=== PATIENT | female | born 1980 ===

== ENCOUNTER 2016-04-28 15:54 | Emergency (ER) | payer MEDICAID ==
[2016-04-28 15:54] VITALS: BMI 24.1
[2016-04-28 16:04] VITALS: BP 124/78; PULSE 103; RESP 16; TEMP 98.1; O2SAT 100
[2016-04-28] MEDS ORDERED: Apap-Butalbital-Caffeine 325-50-40mg Tab PO STA (16:29)
[2016-04-28] MEDS ORDERED: Apap-Butalbital-Caffeine 325-50-40mg Tab ONE (16:36)
[2016-04-28] MEDS ORDERED: Sodium Chloride 0.9% 1,000 ML IV STA (17:02)
[2016-04-28 17:28] LABS: BASO # 0.1 K/uL (0.0-0.2); BASO % 0.6 % (0.0-2.0); EOS # 0.1 K/uL (0.0-0.7); EOS % 0.9 % (0.0-4.0); HEMATOCRIT 38.6 % (34.0-47.0); LYMPH # 2.5 K/uL (1.0-4.3); LYMPH % 25.4 % (20.0-40.0); MEAN CELL VOLUME 86.5 fl (81.0-99.0); MEAN CORPUSCULAR HEMOGLOBIN 28.5 pg (27.0-31.0); MEAN PLATELET VOLUME 8.3 fl (7.2-11.7); MONO # 0.5 K/uL (0.0-0.8); MONO % 4.7 % (0.0-10.0); NEUT # 6.7 K/uL (1.8-7.0); NEUT % 68.4 % (50.0-75.0); RED CELL DISTRIBUTION WIDTH 13.7 % (11.5-14.5); WHITE BLOOD COUNT 9.9 K/uL (4.8-10.8)
[2016-04-28 17:36] LABS: ALB/GLOB RATIO 1.2 (1.0-2.1); ALKALINE PHOSPHATASE 65 U/L (38-126); ALT/SGPT 33 U/L (9-52); AST/SGOT 29 U/L (14-36); BILIRUBIN,TOTAL 0.5 mg/dl (0.2-1.3); BLOOD UREA NITROGEN 12 mg/dl (7-17); CALCIUM 9.3 mg/dL (8.4-10.2); CARBON DIOXIDE 26 mmol/L (22-30); CHLORIDE 102 mmol/L (98-107); GFR AFRICAN-AMERICAN > 60; GLUCOSE,RANDOM 98 mg/dL (65-105); POTASSIUM 3.6 MMOL/L (3.6-5.0); SODIUM 142 mmol/l (132-148); TOTAL PROTEIN 7.9 G/DL (6.3-8.2)
[2016-04-28 18:07] LABS: THYROID STIMULATING HORMONE 6.54 mIU/ML (0.46-4.68)
--- NOTE | 2016-04-28 18:09 | ED PDOC ---
HPI: Headache Time Seen by Provider: 04/28/16 16:13 Chief Complaint (Nursing): Headache Chief Complaint (Provider): Headache History Per: Patient History/Exam Limitations: no limitations Onset/Duration Of Symptoms: Days (3x) Current Symptoms Are (Timing): Still Present Severity: Moderate Associated Symptoms: Photophobia (possible), Other (slight dizziness). denies: Blurred Vision Additional Complaint(s): 35 year old female presents to the ED with complaints of a left sided (behind her eye) headache that radiates to her whole head then to the right side of her head that started 3x days ago. She reports having possible photophobia, slight dizziness, and she took motrin but had only slight relief from it. She was recently seen by her PMD for similar symptoms. She was given a perscription 50mcg synthroid and Rx for the sinus infection. She was also diagnosed with hyperthyroidism, which she had known but never took medication for it. She doesn 't have AMS, denies having change in vision, difficulty walking or talking, loss of memory, neck pain, fever, chills, chest pain, and any urinary complaints. PMD: Tam Banuelos MD Past Medical History Reviewed: Historical Data, Nursing Documentation, Vital Signs Vital Signs: Last Vital Signs Temp 98.1 F 04/28/16 16:00 Pulse 103 H 04/28/16 16:00 Resp 16 04/28/16 16:00 BP 124/78 04/28/16 16:00 Pulse Ox 100 04/28/16 16:00 - Medical History PMH: Asthma (mild), Back Problems, Hypothyroidism, Chronic Kidney Disease ( protein in urine) - Surgical History Surgical History: - Family History Family History: States: Unknown Family Hx - Social History Current smoker - smoking cessation education provided: No Alcohol: None Drugs: Denies - Home Medications Home Medications: Ambulatory Orders Medication Instructions Recorded Acetaminophen/Butalbital/Caf 1 tab PO TID #9 tab 04/28/16 [Fioricet] Metoclopramide [Reglan] 10 mg PO Q8 #9 tab 04/28/16 - Allergies Allergies/Adverse Reactions: Allergies Allergy/AdvReac Type Severity Reaction Status Date / Time oxycodone HCl [From Percocet] Allergy RASH Verified 04/28/16 16:00 Review of Systems ROS Statement: Except As Marked, All Systems Reviewed And Found Negative Constitutional: Negative for: Fever, Chills Eyes: Negative for: Vision Change Cardiovascular: Negative for: Chest Pain Genitourinary Female: Negative for: Dysuria, Frequency, Hematuria Musculoskeletal: Negative for: Neck Pain Neurological: Positive for: Headache (and possible photophobia), Dizziness. Negative for: Altered Mental Status, Other (motor or sensory deficits) Physical Exam - Reviewed Nursing Documentation Reviewed: Yes Vital Signs Reviewed: Yes - Physical Exam Appears: Positive for: Well, Non-toxic, In Acute Distress (mild painful distress ) Head Exam: Positive for: ATRAUMATIC, NORMOCEPHALIC Skin: Positive for: Normal Color, Warm, Dry Eye Exam: Positive for: Normal appearance, EOMI, PERRL. Negative for: Nystagmus , Periorbital swelling, Conjunctival injection ENT: Positive for: Normal ENT Inspection. Negative for: Pharyngeal Erythema, Tonsillar Swelling Neck: Positive for: Normal Cardiovascular/Chest: Positive for: Regular Rate, Rhythm Respiratory: Positive for: Normal Breath Sounds. Negative for: Respiratory Distress Pulses-Dorsalis Pedis (L): 2+ Pulses-Dorsalis Pedis (R): 2+ Pulses-Radial (L): 2+ Pulses-Radial (R): 2+ Gastrointestinal/Abdominal: Positive for: Normal Exam, Soft. Negative for: Tenderness Back: Positive for: Normal Inspection Extremity: Positive for: Normal ROM, Capillary Refill (normal ). Negative for: Tenderness Neurologic/Psych: Positive for: Alert, electric utility lineworker II-XII (intact ), Oriented (3x), Cerebellar Tests (intact normal ), Gait (normal ), Other (strength 5/5 upper and lower extremities ). Negative for: Motor/Sensory Deficits, Aphasia, Facial Droop - Laboratory Results Result Diagrams: 04/28/16 17:23 04/28/16 17:23 - ECG O2 Sat by Pulse Oximetry: 100 (RA) Pulse Ox Interpretation: Normal Medical Decision Making Medical Decision Makin:13 Initial impression: 35 year old female with left sided migraine ESR, evaluate for vasculitides Initial plan: * CMP * TSH * CBC * erythrocyte * sedimentation rate * fioricet 1 tab PO * sodium chloride 1,000ml IV 1,000mls/hr * reglan 10mg PO * reevaluation * pt had a normal head CT 04/16/16 Scribe Attestation: Documented by Tere Falcon, acting as a scribe for Brandyn CLIFFORD. Provider Scribe Attestation: All medical record entries made by the Scribe were at my direction and personally dictated by me. I have reviewed the chart and agree that the record accurately reflects my personal performance of the history, physical exam, medical decision making, and the department course for this patient. I have also personally directed, reviewed, and agree with the discharge instructions and disposition. labs reviewed with no acute finding. ESR wnl on re-evaluation: feeling better. no change in vision, no headache at this time. neuro exam with no focal weakness or deficits. discussed need for follow up and return information. all questions answered. stable for discharge. Disposition - Clinical Impression Clinical Impression: Migraine, Headache - Patient ED Disposition Is Patient to be Admitted: No Counseled Patient/Family Regarding: Studies Performed, Diagnosis, Need For Followup, Rx Given - Disposition Referrals: Norris Dudley MD [Medical Doctor] - Disposition: Routine/Home Disposition Time: 19:18 Condition: IMPROVED Additional Instructions: follow up with primary doctor and neurologist without fail return for severe headache, altered mental status or any new concerns. Prescriptions: Acetaminophen/Butalbital/Caf [Fioricet] 1 tab PO TID #9 tab Metoclopramide [Reglan] 10 mg PO Q8 #9 tab Instructions: Migraine Headache (ED), General Headache (ED)
== END 2016-04-28 19:39 | disposition home or self-care (01) ==
LOC: H.ER 15:54
DX: G43.909 Migraine, unspecified, not intractable, without status migrainosus (principal); E03.9 Hypothyroidism, unspecified; N18.9 Chronic kidney disease, unspecified

== ENCOUNTER 2016-10-14 12:32 | Emergency (ER) | payer MEDICAID ==
[2016-10-14 12:32] VITALS: BMI 24.1
[2016-10-14 12:38] VITALS: TEMP 98.1
--- NOTE | 2016-10-14 12:54 | ED PDOC ---
HPI: Abdomen Time Seen by Provider: 10/14/16 12:41 Chief Complaint (Nursing): Abdominal Pain History Per: Patient Onset/Duration Of Symptoms: Days (2) Current Symptoms Are (Timing): Still Present Severity: Mild Pain Scale Rating Of: 2 Location Of Pain/Discomfort: Other (Right flank) Quality Of Discomfort: Unable To Describe Associated Symptoms: Urinary Symptoms. denies: Fever, Nausea, Vomiting, Diarrhea Exacerbating Factors: None Alleviating Factors: None Additional Complaint(s): Right flank pain radiating to RLQ since yesterday assoc with dysuria. Denies fever or chills. Abnormal Vaginal Bleeding: No Past Medical History Vital Signs: Last Vital Signs Temp 98.1 F 10/14/16 12:36 Pulse 86 10/14/16 12:36 Resp 16 10/14/16 12:36 BP 119/71 10/14/16 12:36 Pulse Ox 98 10/14/16 12:54 - Medical History PMH: Asthma (mild), Back Problems, Hypothyroidism, Chronic Kidney Disease ( protein in urine) - Surgical History Surgical History: - Family History Family History: States: Unknown Family Hx - Home Medications Home Medications: Ambulatory Orders Medication Instructions Recorded Acetaminophen/Butalbital/Caf 1 tab PO TID #9 tab 04/28/16 [Fioricet] Metoclopramide [Reglan] 10 mg PO Q8 #9 tab 04/28/16 Naproxen [Naprosyn] 500 mg PO Q12H #20 tab 10/14/16 Sulfamethoxazole/Trimethoprim 1 tab PO BID #20 tab 10/14/16 [Bactrim DS 800 mg-160 mg] - Allergies Allergies/Adverse Reactions: Allergies Allergy/AdvReac Type Severity Reaction Status Date / Time oxycodone HCl [From Percocet] Allergy RASH Verified 04/28/16 16:00 Review of Systems Constitutional: Negative for: Fever Gastrointestinal: Negative for: Nausea, Vomiting, Abdominal Pain Genitourinary Female: Positive for: Dysuria Musculoskeletal: Positive for: Back Pain Physical Exam - Physical Exam Appears: Positive for: Non-toxic, No Acute Distress Skin: Positive for: Normal Color, Warm, DRY Gastrointestinal/Abdominal: Positive for: Bowel Sounds, Soft. Negative for: Tenderness Back: Positive for: Normal Inspection, R CVA Tenderness Neurologic/Psych: Positive for: Alert, Oriented - Laboratory Results Result Diagrams: 10/14/16 13:00 10/14/16 13:00 - ECG O2 Sat by Pulse Oximetry: 98 Disposition - Clinical Impression Clinical Impression: Cystitis - Patient ED Disposition Is Patient to be Admitted: No Counseled Patient/Family Regarding: Studies Performed, Diagnosis, Need For Followup, Rx Given - Disposition Referrals: [facility] [Outside] Disposition: Routine/Home Disposition Time: 14:44 Condition: FAIR Prescriptions: Naproxen [Naprosyn] 500 mg PO Q12H #20 tab Sulfamethoxazole/Trimethoprim [Bactrim DS 800 mg-160 mg] 1 tab PO BID #20 tab Instructions: Urinary Tract Infection in Women (ED) Forms: [employer] (Moldovan)
[2016-10-14 13:17] LABS: BASO % 0.7 % (0.0-2.0); EOS # 0.1 K/uL (0.0-0.7); HEMATOCRIT 38.9 % (34.0-47.0); LYMPH # 1.6 K/uL (1.0-4.3); LYMPH % 34.6 % (20.0-40.0); MEAN CELL VOLUME 85.6 fl (81.0-99.0); MEAN CORPUSCULAR HEMOGLOBIN 28.1 pg (27.0-31.0); MEAN CORPUSCULAR HGB CONC 32.8 g/dL (33.0-37.0); MEAN PLATELET VOLUME 8.3 fl (7.2-11.7); MONO # 0.3 K/uL (0.0-0.8); MONO % 6.2 % (0.0-10.0); NEUT # 2.7 K/uL (1.8-7.0); NEUT % 56.5 % (50.0-75.0); NRBC % 0.1 % (0.0-0.0); RED CELL DISTRIBUTION WIDTH 13.7 % (11.5-14.5); WHITE BLOOD COUNT 4.8 K/uL (4.8-10.8)
[2016-10-14 13:32] LABS: ALB/GLOB RATIO 1.2 (1.0-2.1); ALKALINE PHOSPHATASE 56 U/L (38-126); ALT/SGPT 31 U/L (9-52); AST/SGOT 30 U/L (14-36); BILIRUBIN,TOTAL 0.5 mg/dl (0.2-1.3); BLOOD UREA NITROGEN 10 mg/dl (7-17); CALCIUM 9.2 mg/dL (8.4-10.2); CARBON DIOXIDE 22 mmol/L (22-30); CHLORIDE 107 mmol/L (98-107); GFR AFRICAN-AMERICAN > 60; GLUCOSE,RANDOM 88 mg/dL (65-105); POTASSIUM 3.9 MMOL/L (3.6-5.0); SODIUM 139 mmol/l (132-148); TOTAL PROTEIN 7.4 G/DL (6.3-8.2)
--- NOTE | 2016-10-14 14:26 | CT ---
PROCEDURE: CT abdomen pelvis dated 10/14/2016 HISTORY: Rule out kidney stone. Right-sided abdominal pain. COMPARISON: Comparison made with CT scan abdomen pelvis 01/11/2016 TECHNIQUE: Contiguous axial images of the abdomen and pelvis performed without oral or intravenous contrast material. Coronal and Sagittal reformats generated. Radiation dose: Total exam DLP = 364.75 mGy-cm. This CT exam was performed using one or more of the following dose reduction techniques: Automated exposure control, adjustment of the mA and/or kV according to patient size, and/or use of iterative reconstruction technique. FINDINGS: LOWER THORAX: Lung bases are free of focal consolidation effusion or pneumothorax. There may be some minimal scarring left lung base. Heart size normal. No significant pericardial effusion. There appears to be tiny hiatal hernia. LIVER: Liver exhibits normal size measuring approximately 17.2 cm in CC dimension. Previously noted small -sub cm low-attenuation focus inferior posterior aspect right lobe liver on which was too small to characterize on prior study not appreciated on this exam due to the lack of circulating intravenous contrast material. GALLBLADDER AND BILE DUCTS: Gallbladder is physiologically distended. No evidence of intraluminal gallbladder calculi. PANCREAS: Pancreas appears grossly unremarkable. SPLEEN: Spleen exhibits normal size and attenuation pattern without mass collection calcification. ADRENALS: There are no adrenal lesions. KIDNEYS AND URETERS: Kidneys demonstrate relatively symmetric size. No evidence of nephrolithiasis or hydronephrosis. No obvious renal mass or collection seen on this noncontrast study. BLADDER: The urinary bladder is incompletely distended which may in part account for slight thick-walled appearance. Possibility of a cystitis not excluded. REPRODUCTIVE: Uterus and adnexal structures grossly unremarkable. APPENDIX: What is felt to represent a normal partially DI air-filled appendix best seen on axial image number [id number] and coronal image number [id number]. BOWEL: Evaluation of the bowel is limited due to the lack of oral contrast material. Stomach is incompletely distended which presumably accounts for slight thick-walled appearance. Visualized loops of small bowel exhibit normal contour and caliber. No evidence of acute mechanical small bowel obstruction. There is a large amount of stool within the cecum and at ascending at colon and to a lesser degree transverse colon consistent with fecal retention/ constipation. No obvious mural wall thickening. PERITONEUM: No gross free intraperitoneal air. No free or loculated fluid collections. LYMPH NODES: Unremarkable. No enlarged lymph nodes. VASCULATURE: Unremarkable. No aortic aneurysm. BONES: Moderate levoscoliosis centered at the lower L2 level. Mild multilevel degenerative spondylosis of the lumbar and to a lesser degree lower thoracic spine OTHER FINDINGS: None. IMPRESSION: No evidence of nephrolithiasis or hydronephrosis. No evidence of acute appendicitis. Findings consistent with moderate constipation predominant involving the cecum and at ascending colon and to a lesser degree transverse colon. Previously noted tiny low-attenuation focus within the posterior inferior aspect right lobe liver is not appreciated on this study due to the lack of circulating intravenous contrast material. Mild wall thickening of the urinary bladder likely in part due to incomplete distention however cystitis not excluded.
[2016-10-14 15:14] VITALS: BP 132/76; PULSE 78; RESP 19; O2SAT 99
== END 2016-10-14 15:14 | disposition home or self-care (01) ==
LOC: H.ER 12:32
DX: N30.90 Cystitis, unspecified without hematuria (principal)
CPT/HCPCS: 74176; 80053; 81025; 85025; 96374; 96375; 99283; J1885; J2405

== ENCOUNTER 2017-02-16 16:24 | Emergency (ER) | payer SELFPAY ==
[2017-02-16 16:24] VITALS: BMI 24.1
[2017-02-16 16:35] VITALS: BP 130/80; PULSE 98; RESP 16; TEMP 98.7; O2SAT 98
[2017-02-16 18:35] LABS: BASO # 0.1 K/uL (0.0-0.2); BASO % 0.7 % (0.0-2.0); EOS # 0.1 K/uL (0.0-0.7); EOS % 0.9 % (0.0-4.0); HEMOGLOBIN 13.1 g/dL (12.0-16.0); LYMPH # 2.1 K/uL (1.0-4.3); LYMPH % 22.2 % (20.0-40.0); MEAN CELL VOLUME 87.2 fl (81.0-99.0); MEAN CORPUSCULAR HEMOGLOBIN 29.3 pg (27.0-31.0); MEAN CORPUSCULAR HGB CONC 33.6 g/dL (33.0-37.0); MONO # 0.5 K/uL (0.0-0.8); NEUT # 6.6 K/uL (1.8-7.0); NEUT % 71.2 % (50.0-75.0); RBC 4.47 Mil/uL (3.80-5.20); RED CELL DISTRIBUTION WIDTH 13.7 % (11.5-14.5); WHITE BLOOD COUNT 9.2 K/uL (4.8-10.8)
[2017-02-16 18:43] LABS: ALB/GLOB RATIO 1.2 (1.0-2.1); ALBUMIN 4.2 g/dL (3.5-5.0); ALT/SGPT 39 U/L (9-52); AST/SGOT 29 U/L (14-36); BLOOD UREA NITROGEN 9 mg/dl (7-17); CALCIUM 9.3 mg/dL (8.4-10.2); GFR AFRICAN-AMERICAN > 60; GFR NON-AFRICAN AMERICAN > 60
[2017-02-16 19:10] LABS: SQUAMOUS EPITHIAL 1 /hpf (0-5); URINE BILIRUBIN NEGATIVE (NEGATIVE); URINE BLOOD MODERATE (NEGATIVE); URINE CLARITY SLIGHTY-CLOUDY (Clear); URINE COLOR YELLOW (YELLOW); URINE GLUCOSE (UA) NEG (Normal); URINE LEUKOCYTE ESTERASE NEG Leu/uL (Negative); URINE NITRATE NEGATIVE (NEGATIVE); URINE PROTEIN NEGATIVE (NEGATIVE); URINE UROBILINOGEN 0.2-1.0 mg/dL (0.2-1.0)
--- NOTE | 2017-02-16 19:44 | ED PDOC ---
HPI: Headache Time Seen by Provider: 02/16/17 16:38 Chief Complaint (Nursing): Headache Chief Complaint (Provider): Left sided headache, dizziness History Per: Patient History/Exam Limitations: no limitations Onset/Duration Of Symptoms: Days Current Symptoms Are (Timing): Still Present Severity: Mild Pain Scale Rating Of: 4 Quality: Sharp Additional Complaint(s): Pt reports headache in the left temporal region. Pt states she was seen here about 1 year ago for the same. She states he occurred for a few months. She was seen by urologist at that time and she was told it could be TMJ. Pt reports the same for a few weeks at the end of summer. PT states she was told to get an MRI. Pt states that it began a few days ago. Pt states today she felt dizziness , which she states has improved and wanted to be evaluated. Past Medical History Reviewed: Historical Data, Nursing Documentation, Vital Signs Vital Signs: Last Vital Signs Temp 98.7 F 02/16/17 16:32 Pulse 98 H 02/16/17 16:32 Resp 16 02/16/17 16:32 BP 130/80 02/16/17 16:32 Pulse Ox 98 02/16/17 16:32 - Medical History PMH: Asthma (mild), Back Problems, Hypothyroidism, Chronic Kidney Disease ( protein in urine) - Surgical History Surgical History: - Family History Family History: States: Unknown Family Hx - Home Medications Home Medications: Ambulatory Orders Medication Instructions Recorded Acetaminophen/Butalbital/Caf 1 tab PO TID #9 tab 04/28/16 [Fioricet] Metoclopramide [Reglan] 10 mg PO Q8 #9 tab 04/28/16 Naproxen [Naprosyn] 500 mg PO Q12H #20 tab 10/14/16 Sulfamethoxazole/Trimethoprim 1 tab PO BID #20 tab 10/14/16 [Bactrim DS 800 mg-160 mg] - Allergies Allergies/Adverse Reactions: Allergies Allergy/AdvReac Type Severity Reaction Status Date / Time oxycodone HCl [From Percocet] Allergy RASH Verified 02/16/17 16:32 Review of Systems ROS Statement: Except As Marked, All Systems Reviewed And Found Negative Constitutional: Negative for: Fever, Chills Gastrointestinal: Negative for: Nausea, Vomiting, Abdominal Pain Physical Exam - Reviewed Nursing Documentation Reviewed: Yes Vital Signs Reviewed: Yes - Physical Exam Appears: Positive for: Well, Non-toxic, No Acute Distress Head Exam: Positive for: ATRAUMATIC, NORMAL INSPECTION, NORMOCEPHALIC Skin: Positive for: Normal Color, Warm, DRY Eye Exam: Positive for: Normal appearance ENT: Positive for: Normal ENT Inspection Neck: Positive for: Normal, Painless ROM Cardiovascular/Chest: Positive for: Regular Rate, Rhythm Respiratory: Positive for: CNT, Normal Breath Sounds Gastrointestinal/Abdominal: Positive for: Normal Exam, Bowel Sounds, Soft Back: Positive for: Normal Inspection Extremity: Positive for: Normal ROM Neurologic/Psych: Positive for: Alert, Oriented, Gait. Negative for: Motor/ Sensory Deficits, Facial Droop - Laboratory Results Result Diagrams: 02/16/17 18:25 02/16/17 18:25 - ECG O2 Sat by Pulse Oximetry: 98 Medical Decision Making Medical Decision Making: Slight elevation of TSH. Discussed with patient. Pt did not want CT at this time. Disposition - Clinical Impression Clinical Impression: Headache - Patient ED Disposition Is Patient to be Admitted: No Counseled Patient/Family Regarding: Diagnosis, Need For Followup - Disposition Disposition: Routine/Home Disposition Time: 19:46 Condition: GOOD Instructions: Acute Headache (ED) Forms: [employer] (Danish)
== END 2017-02-16 20:16 | disposition home or self-care (01) ==
LOC: H.ER 16:24
DX: R51 Headache (principal); E03.9 Hypothyroidism, unspecified; J45.909 Unspecified asthma, uncomplicated; Z88.5 Allergy status to narcotic agent

== ENCOUNTER 2017-04-03 14:35 | Emergency (ER) | payer SELFPAY ==
[2017-04-03 14:35] VITALS: BMI 24.1
[2017-04-03 14:41] VITALS: BP 129/91; PULSE 91; RESP 16; TEMP 98; O2SAT 100
[2017-04-03] MEDS ORDERED: Sodium Chloride 0.9% 1,000 ML IV STA (15:28)
--- NOTE | 2017-04-03 15:33 | ED PDOC ---
HPI: Abdomen Time Seen by Provider: 04/03/17 15:29 Chief Complaint (Nursing): Groin Pain Chief Complaint (Provider): RIGHT History Per: Patient (36 Y/O FEMALE HERE FOR EVALUATION OF RIGHT SIDED BACK PAIN THAT OCCURRED WHEN SHE SAT UP OUT OF BED. NOTES PAIN ALONG RIGHT LOWER ABD NOW. DENIES ANY FEVERS/CHILLS. PATIENT DOES NOT WANT CT ABD/PELVIS SHE HAS HAD MANY RECENTLY. LAST CT REVIEWED 10/2016 NO RENAL STONE NOTED.) Past Medical History Reviewed: Historical Data, Nursing Documentation, Vital Signs Vital Signs: Last Vital Signs Temp 98.0 F 04/03/17 14:38 Pulse 91 H 04/03/17 14:38 Resp 16 04/03/17 14:38 BP 129/91 H 04/03/17 14:38 Pulse Ox 100 04/03/17 19:34 - Medical History PMH: Asthma (mild), Back Problems, Hypothyroidism, Chronic Kidney Disease ( protein in urine) - Surgical History Surgical History: - Family History Family History: States: Unknown Family Hx - Home Medications Home Medications: Ambulatory Orders Medication Instructions Recorded Acetaminophen/Butalbital/Caf 1 tab PO TID #9 tab 04/28/16 [Fioricet] Metoclopramide [Reglan] 10 mg PO Q8 #9 tab 04/28/16 Naproxen [Naprosyn] 500 mg PO Q12H #20 tab 10/14/16 Sulfamethoxazole/Trimethoprim 1 tab PO BID #20 tab 10/14/16 [Bactrim DS 800 mg-160 mg] Docusate Sodium [Colace] 100 mg PO BID #14 capsule 04/03/17 Docusate Sodium [Colace] 100 mg PO BID PRN #14 capsule 04/03/17 Naproxen 375 mg PO Q8 PRN #21 tablet 04/03/17 Naproxen 375 mg PO Q8 PRN #21 tablet 04/03/17 - Allergies Allergies/Adverse Reactions: Allergies Allergy/AdvReac Type Severity Reaction Status Date / Time oxycodone HCl [From Percocet] Allergy RASH Verified 04/03/17 14:38 Review of Systems ROS Statement: Except As Marked, All Systems Reviewed And Found Negative Gastrointestinal: Positive for: Abdominal Pain Physical Exam - Reviewed Nursing Documentation Reviewed: Yes Vital Signs Reviewed: Yes - Physical Exam Appears: Positive for: Well, Non-toxic, No Acute Distress Head Exam: Positive for: ATRAUMATIC, NORMAL INSPECTION, NORMOCEPHALIC Skin: Positive for: Normal Color, Warm, DRY Eye Exam: Positive for: EOMI, Normal appearance, PERRL ENT: Positive for: Normal ENT Inspection Neck: Positive for: Normal, Painless ROM Cardiovascular/Chest: Positive for: Regular Rate, Rhythm Respiratory: Positive for: CNT, Normal Breath Sounds Gastrointestinal/Abdominal: Positive for: Normal Exam, Bowel Sounds, Soft, Tenderness (NONTENDER ABDOMEN/ TENDERNESS DESCRIBED RIGHT INGUINAL REGION.) Back: Positive for: Normal Inspection. Negative for: L CVA Tenderness, R CVA Tenderness Extremity: Positive for: Normal ROM Neurologic/Psych: Positive for: Alert, Oriented - Laboratory Results Result Diagrams: 04/03/17 15:50 04/03/17 15:50 - ECG O2 Sat by Pulse Oximetry: 100 - Progress ED Course And Treament: TORADOL 15 MG IV X 1 DOSE NS 1 LITER TRANSVAGINAL US: IMPRESSION: No ovarian cyst or adnexal mass. Small amount of free fluid in the endocervical canal is of uncertain etiology and significance. 2.1 x 1.5 x 2.5 cm midbody anterior wall intramural fibroid. ABDOMINAL US: IMPRESSION: No definite visualization of the appendix. Acute appendicitis can neither be confirmed nor excluded. Nonspecific free fluid in the right lower quadrant. RENAL US: IMPRESSION: Unremarkable renal sonogram. Nonspecific 0.8 cm echogenic structure within the right hepatic lobe, possibly a hemangioma. CT ABDOMEN/PELVIS WITHOU CONTRAST (PATIENT REFUSED CONTRAST) IMPRESSION: 1. No CT evidence for acute appendicitis. 2. Mild hepatomegaly. 3. Constipation. No evidence of bowel obstruction. PATIENT DEFERRED PELVIC EXAM. STATES SHE HAS HAD STD TESTING WITH TANK T[employer]ER AND WILL F /U. GC SENT WITH URINE TODAY Disposition - Clinical Impression Clinical Impression: Constipation, Abdominal pain - Patient ED Disposition Is Patient to be Admitted: No - Disposition [facility] Disposition: Routine/Home Disposition Time: 19:46 Condition: GOOD Prescriptions: Docusate Sodium [Colace] 100 mg PO BID PRN #14 capsule PRN Reason: Constipation Docusate Sodium [Colace] 100 mg PO BID #14 capsule Naproxen 375 mg PO Q8 PRN #21 tablet PRN Reason: Pain, Moderate (4-7) Naproxen 375 mg PO Q8 PRN #21 tablet PRN Reason: Pain, Moderate (4-7) Instructions: Constipation, Adult (DC), Acute Abdomen (Belly Pain), Acute Abdomen (Belly Pain), Adult (DC) Forms: [employer] (Kiswahili)
[2017-04-03 16:17] LABS: SQUAMOUS EPITHIAL 2 /hpf (0-5); URINE BILIRUBIN NEGATIVE (NEGATIVE); URINE BLOOD NEGATIVE (NEGATIVE); URINE CLARITY SLIGHTY-CLOUDY (Clear); URINE COLOR YELLOW (YELLOW); URINE GLUCOSE (UA) NEG (Normal); URINE LEUKOCYTE ESTERASE NEG Leu/uL (Negative); URINE NITRATE NEGATIVE (NEGATIVE); URINE PROTEIN 30 mg/dL (NEGATIVE); URINE UROBILINOGEN 0.2-1.0 mg/dL (0.2-1.0)
[2017-04-03 16:18] LABS: BASO % 0.4 % (0.0-2.0); EOS # 0.1 K/uL (0.0-0.7); EOS % 0.8 % (0.0-4.0); HEMOGLOBIN 13.5 g/dL (12.0-16.0); LYMPH # 2.2 K/uL (1.0-4.3); MEAN CELL VOLUME 87.2 fl (81.0-99.0); MEAN CORPUSCULAR HEMOGLOBIN 29.2 pg (27.0-31.0); MEAN CORPUSCULAR HGB CONC 33.5 g/dL (33.0-37.0); MEAN PLATELET VOLUME 8.2 fl (7.2-11.7); MONO # 0.5 K/uL (0.0-0.8); MONO % 5.2 % (0.0-10.0); NEUT # 6.8 K/uL (1.8-7.0); NEUT % 70.6 % (50.0-75.0); RBC 4.61 Mil/uL (3.80-5.20); RED CELL DISTRIBUTION WIDTH 13.4 % (11.5-14.5); WHITE BLOOD COUNT 9.6 K/uL (4.8-10.8)
[2017-04-03 16:22] LABS: ALB/GLOB RATIO 1.2 (1.0-2.1); ALBUMIN 4.2 g/dL (3.5-5.0); ALT/SGPT 28 U/L (9-52); AST/SGOT 27 U/L (14-36); BLOOD UREA NITROGEN 9 mg/dl (7-17); CALCIUM 9.3 mg/dL (8.4-10.2); GFR AFRICAN-AMERICAN > 60; GFR NON-AFRICAN AMERICAN > 60; LIPASE 38 U/L (23-300)
--- NOTE | 2017-04-03 16:56 | US ---
PROCEDURE: Ultrasound of the Kidneys HISTORY: RT SIDE BACK PAIN, R/O STONE COMPARISON: None available. TECHNIQUE: Sonogram of the kidneys. FINDINGS: RIGHT KIDNEY: Measures: 10.1 x 4.2 x 4.7 cm. Normal in size, contour and echogenicity. No stone, solid mass lesion or hydronephrosis visualized. LEFT KIDNEY: Measures: 10.3 x 4.4 x 4.2 cm. Normal in size, contour and echogenicity. No stone, solid mass lesion or hydronephrosis visualized. OTHER FINDINGS: Small 0.8 x 0.8 x 0.8 cm echogenic structure within the right hepatic lobe. IMPRESSION: Unremarkable renal sonogram. Nonspecific 0.8 cm echogenic structure within the right hepatic lobe, possibly a hemangioma.
--- NOTE | 2017-04-03 16:58 | US ---
HISTORY: RLQ EVALUATE APPENDIX COMPARISON: None. TECHNIQUE: Sonographic evaluation of the right lower quadrant of the abdomen. FINDINGS: Sonographic dilation in the right lower quadrant demonstrates normal peristalsing loops of bowel. The appendix is not definitively visualized. Small amount of free fluid is seen in the right lower quadrant. IMPRESSION: No definite visualization of the appendix. Acute appendicitis can neither be confirmed nor excluded. Nonspecific free fluid in the right lower quadrant.
--- NOTE | 2017-04-03 17:06 | US ---
HISTORY: RIGHT ADNEXAL TENDERNESS COMPARISON: None available. TECHNIQUE: Transvaginal pelvic ultrasound was performed. FINDINGS: UTERUS: Measures 8.5 x 3.7 x 5.1 cm. Retroverted, normal in size and appearance. There is a 2.1 x 1.5 x 2.5 cm intramural fibroid in the anterior wall of the midbody of the uterus. ENDOMETRIUM: Measures 8.0 mm in diameter. Unremarkable. CERVIX: There is small amount of fluid in the endocervical canal. RIGHT OVARY: Measures 2.6 x 1.5 x 2.2 cm. No solid mass. Normal flow. LEFT OVARY: Measures 2.7 x 2.5 x 2.7 cm. No solid mass. Normal flow. FREE FLUID: No significant free fluid noted. OTHER FINDINGS: None. IMPRESSION: No ovarian cyst or adnexal mass. Small amount of free fluid in the endocervical canal is of uncertain etiology and significance. 2.1 x 1.5 x 2.5 cm midbody anterior wall intramural fibroid.
--- NOTE | 2017-04-03 18:44 | CT ---
PROCEDURE: CT Abdomen and Pelvis without intravenous contrast HISTORY: r/o appendicitis COMPARISON: 10/14/2016. TECHNIQUE: CT scan of the abdomen and pelvis was performed without administration of intravenous contrast. Oral contrast was not administered. Coronal and sagittal reformatted images were obtained. Radiation dose: Total exam DLP = 390.64 mGy-cm. This CT exam was performed using one or more of the following dose reduction techniques: Automated exposure control, adjustment of the mA and/or kV according to patient size, and/or use of iterative reconstruction technique. FINDINGS: LOWER THORAX: The lung bases are clear. LIVER: The liver is enlarged. No gross lesion or ductal dilatation. GALLBLADDER AND BILE DUCTS: There are no calcified gallstones. PANCREAS: Normal in size. No gross lesion or ductal dilatation. SPLEEN: Normal in size. ADRENALS: No discrete nodule. KIDNEYS AND URETERS: Both kidneys are normal in size without nephrolithiasis. No hydronephrosis. VASCULATURE: No aortic aneurysm. BOWEL: The small bowel loops are normal in caliber. There is moderate amount of stool in the colon. No bowel dilatation or obstruction. APPENDIX: The appendix is normal in caliber and there are no inflammatory changes in the right lower quadrant. PERITONEUM: No free fluid. No free air. LYMPH NODES: No enlarged lymph nodes. BLADDER: Well distended and normal in appearance. REPRODUCTIVE: The uterus is normal in size. BONES: No acute fracture. There is mild levoscoliosis in the thoracolumbar spine. OTHER FINDINGS: None. IMPRESSION: 1. No CT evidence for acute appendicitis. 2. Mild hepatomegaly. 3. Constipation. No evidence of bowel obstruction.
== END 2017-04-03 19:53 | disposition home or self-care (01) ==
LOC: H.ER 14:35
DX: K59.00 Constipation, unspecified (principal); D25.1 Intramural leiomyoma of uterus; E03.9 Hypothyroidism, unspecified; Z88.5 Allergy status to narcotic agent; J45.909 Unspecified asthma, uncomplicated
CPT/HCPCS: 74176; 76705; 76770; 76830; 80053; 81003; 81025; 83690; 85025; 87086; 87491; 87591; 99282; J7040

== ENCOUNTER 2017-04-29 09:37 | Emergency (ER) | payer MEDICAID ==
[2017-04-29 09:37] VITALS: BMI 24.1
[2017-04-29 10:26] VITALS: RESP 18; O2SAT 100
[2017-04-29] MEDS ORDERED: Sodium Chloride 0.9% 1,000 ML IV SCH (10:30)
--- NOTE | 2017-04-29 10:30 | ED PDOC ---
HPI: Female Pain Additional Complaint(s): 36yo F with PMHx fibroid, hypothyroidism, and right Liver hemangioma c/o blood with wiping x2 days. a/w nausea, urinary frequency and b/l flank pain. Denies fever, chills, vomiting, abd pain, diarrhea, gross hematuria. Denies sick contacts or new foods. Has not followed with PCP yet 2/2 insurance issues. LMP ED visit 04/03/17 reviewed with following imaging CT Abd/ pelvis: hepatomegaly Renal US: WNL Abd US: 8mm right hepatic lobe ?hemangioma TVUS: 2.1x1.5x2.5cm intramural fibroid G/C neg Urine cx neg PCP Dr. Pryor <Annemarie Gordon - Last Filed: 04/29/17 12:31> <Sudheer Lazcano - Last Filed: 04/29/17 18:44> Chief Complaint (Nursing): Female Genitourinary Supervising Attending Note - Supervising Attending Note The Documented history was done by the: Physician Stonemason Helper The documented physical exam was done by the: Physician Stonemason Helper The documented procedures were done by the: Physician Stonemason Helper - Attestation: I have personally seen and examined this patient.: Yes I have fully participated in the care of the patient.: Yes I have reviewed all pertinent clinical information, including history, physical exam and plan: Yes - Notes: Notes:: Back and abd pain with hematuria. <Sudheer Lazcano - Last Filed: 04/29/17 18:44> Past Medical History Reviewed: Historical Data, Nursing Documentation, Vital Signs Vital Signs: Last Vital Signs Temp 98.4 F 04/29/17 10:24 Pulse 94 H 04/29/17 10:24 Resp 18 04/29/17 10:24 BP 138/88 04/29/17 10:24 Pulse Ox 100 04/29/17 10:24 - Medical History PMH: Asthma (mild), Back Problems, Hypothyroidism, Chronic Kidney Disease ( protein in urine) - Surgical History Surgical History: - Family History Family History: States: Unknown Family Hx - Social History Current smoker - smoking cessation education provided: No Alcohol: None Drugs: Denies <Annemarie Gordon - Last Filed: 04/29/17 12:31> Vital Signs: Last Vital Signs Temp 99.1 F 04/29/17 12:53 Pulse 81 04/29/17 12:53 Resp 18 04/29/17 12:53 BP 123/76 04/29/17 12:53 Pulse Ox 100 04/29/17 12:53 <Sudheer Lazcano M - Last Filed: 04/29/17 18:44> - Home Medications Home Medications: Ambulatory Orders Medication Instructions Recorded Acetaminophen/Butalbital/Caf 1 tab PO TID #9 tab 04/28/16 [Fioricet] Metoclopramide [Reglan] 10 mg PO Q8 #9 tab 04/28/16 Naproxen [Naprosyn] 500 mg PO Q12H #20 tab 10/14/16 Sulfamethoxazole/Trimethoprim 1 tab PO BID #20 tab 10/14/16 [Bactrim DS 800 mg-160 mg] Docusate Sodium [Colace] 100 mg PO BID #14 capsule 04/03/17 Docusate Sodium [Colace] 100 mg PO BID PRN #14 capsule 04/03/17 Naproxen 375 mg PO Q8 PRN #21 tablet 04/03/17 Naproxen 375 mg PO Q8 PRN #21 tablet 04/03/17 - Allergies Allergies/Adverse Reactions: Allergies Allergy/AdvReac Type Severity Reaction Status Date / Time oxycodone HCl [From Percocet] Allergy RASH Verified 04/29/17 10:23 Review of Systems ROS Statement: Except As Marked, All Systems Reviewed And Found Negative Gastrointestinal: Positive for: Nausea Genitourinary Female: Positive for: Frequency, Other (blood with wiping) <Annemarie Gordon - Last Filed: 04/29/17 12:31> Physical Exam - Reviewed Nursing Documentation Reviewed: Yes Vital Signs Reviewed: Yes - Physical Exam Appears: Positive for: Well, Non-toxic Head Exam: Positive for: ATRAUMATIC, NORMAL INSPECTION Skin: Positive for: Warm, Dry Eye Exam: Positive for: Normal appearance. Negative for: Scleral icterus ENT: Negative for: Pharyngeal Erythema, Tonsillar Exudate Neck: Positive for: Normal, Painless ROM, Supple Cardiovascular/Chest: Positive for: Regular Rate, Rhythm, Chest Non Tender Respiratory: Positive for: Normal Breath Sounds. Negative for: Decreased Breath Sounds Gastrointestinal/Abdominal: Positive for: Bowel Sounds, Soft, Tenderness ( generalized). Negative for: Distended, Guarding Back: Positive for: Normal Inspection, L CVA Tenderness, R CVA Tenderness. Negative for: Vertebral Tenderness Extremity: Positive for: Normal ROM. Negative for: Tenderness Lymphatic: Negative for: Adenopathy Neurologic/Psych: Positive for: Alert, Oriented <Annemarie Gordon - Last Filed: 04/29/17 12:31> - Physical Exam Neck: Positive for: Normal, Painless ROM, Supple Cardiovascular/Chest: Positive for: Regular Rate, Rhythm Respiratory: Positive for: Normal Breath Sounds Gastrointestinal/Abdominal: Positive for: Soft, Tenderness <JaleesaSudheer M - Last Filed: 04/29/17 18:44> - Laboratory Results Result Diagrams: 04/29/17 11:00 04/29/17 11:00 - ECG O2 Sat by Pulse Oximetry: 100 <Annemarie - Last Filed: 04/29/17 12:31> - Laboratory Results Result Diagrams: 04/29/17 11:00 04/29/17 11:00 Interpretation Of Abn Labs: no acute - ECG Pulse Ox Interpretation: Normal - Progress ED Course And Treament: 1843: Labs with no signifcant findings. Pt. to fu with nephrology for possible bloody urine. Pt. stable. AAOx3. Understands plan. CT and US reviewed from previous visit. no acute renal issues. <Sudheer Lazcano Kyree - Last Filed: 04/29/17 18:44> Medical Decision Making Medical Decision Makin DDx UTI, fibroid, tumor, pyelo CBC, BMP Urine dip, UA, u preg NS 1L bolus 1231 labs unremarkable <Annemarie Gordon - Last Filed: 04/29/17 12:31> Disposition - Disposition Disposition Time: 12:32 <Joselitog - Last Filed: 04/29/17 12:31> <JaleesaSudheer M - Last Filed: 04/29/17 18:44> - Clinical Impression Clinical Impression: Hematuria - Disposition [facility] - 04/30/17 Lenard Garcia MD [Staff Provider] - 04/30/17 Condition: STABLE Additional Instructions: Return if not better in 3 days. Instructions: Blood in the Urine (Hematuria) in Adults Forms: [employer] (Gambian), [facility] ED School/Work Excuse Print Language: AFGHAN
[2017-04-29 11:00] LABS: SQUAMOUS EPITHIAL 1 /hpf (0-5); URINE BACTERIA RARE (<OCC); URINE BILIRUBIN NEGATIVE (NEGATIVE); URINE BLOOD NEGATIVE (NEGATIVE); URINE CLARITY SLIGHTY-CLOUDY (Clear); URINE COLOR YELLOW (YELLOW); URINE GLUCOSE (UA) NEG (Normal); URINE LEUKOCYTE ESTERASE NEG Leu/uL (Negative); URINE PROTEIN 30 mg/dL (NEGATIVE); URINE UROBILINOGEN 0.2-1.0 mg/dL (0.2-1.0)
[2017-04-29 11:16] LABS: BASO % 0.7 % (0.0-2.0); EOS # 0.1 K/uL (0.0-0.7); EOS % 1.4 % (0.0-4.0); HEMOGLOBIN 13.6 g/dL (12.0-16.0); LYMPH # 1.6 K/uL (1.0-4.3); LYMPH % 27.4 % (20.0-40.0); MEAN CELL VOLUME 86.3 fl (81.0-99.0); MEAN CORPUSCULAR HEMOGLOBIN 29.2 pg (27.0-31.0); MEAN CORPUSCULAR HGB CONC 33.9 g/dL (33.0-37.0); MEAN PLATELET VOLUME 8.1 fl (7.2-11.7); MONO # 0.3 K/uL (0.0-0.8); MONO % 4.8 % (0.0-10.0); NEUT # 3.9 K/uL (1.8-7.0); NEUT % 65.7 % (50.0-75.0); NRBC % 0.2 % (0.0-0.0); RBC 4.64 Mil/uL (3.80-5.20); RED CELL DISTRIBUTION WIDTH 13.5 % (11.5-14.5); WHITE BLOOD COUNT 5.9 K/uL (4.8-10.8)
[2017-04-29 11:20] LABS: BLOOD UREA NITROGEN 9 mg/dl (7-17); CALCIUM 9.5 mg/dL (8.4-10.2); GFR AFRICAN-AMERICAN > 60; GFR NON-AFRICAN AMERICAN > 60
[2017-04-29 12:53] VITALS: BP 123/76; PULSE 81; TEMP 99.1
== END 2017-04-29 13:01 | disposition home or self-care (01) ==
LOC: H.ER 09:37
DX: R31.9 Hematuria, unspecified (principal); D25.1 Intramural leiomyoma of uterus; E03.9 Hypothyroidism, unspecified; R11.0 Nausea; Z88.5 Allergy status to narcotic agent; R10.9 Unspecified abdominal pain
CPT/HCPCS: 80048; 81003; 81025; 85025; 96360; 99283; J7040

== ENCOUNTER 2017-07-14 17:49 | Emergency (ER) | payer MEDICAID ==
[2017-07-14 18:23] VITALS: BP 123/84; PULSE 96; RESP 20; TEMP 98.5; O2SAT 98; BMI 24.5
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
== END 2017-07-14 19:20 | disposition home or self-care (01) ==
LOC: H.ER 17:49
DX: J70.5 Respiratory conditions due to smoke inhalation (principal); J45.909 Unspecified asthma, uncomplicated; Z88.5 Allergy status to narcotic agent; N18.9 Chronic kidney disease, unspecified; E03.9 Hypothyroidism, unspecified

== ENCOUNTER 2018-01-14 08:47 | Emergency (ER) | payer MEDICAID ==
[2018-01-14 08:47] VITALS: BMI 24.5
[2018-01-14 08:50] VITALS: BP 126/81; PULSE 97; RESP 17; TEMP 98.6; O2SAT 99
--- NOTE | 2018-01-14 09:32 | ED PDOC ---
HPI: Abdomen Time Seen by Provider: 01/14/18 09:25 Chief Complaint (Nursing): Abdominal Pain History Per: Patient Onset/Duration Of Symptoms: Days (2) Current Symptoms Are (Timing): Still Present Severity: Mild Location Of Pain/Discomfort: RLQ Quality Of Discomfort: Unable To Describe Associated Symptoms: Nausea. denies: Fever, Vomiting, Diarrhea, Urinary Symptoms Exacerbating Factors: None Alleviating Factors: None Additional Complaint(s): RLQ abd pain assoc with nausea x 2 days. Denies vomiting or diarrhea. Denies urinary sxs. LMP Dec 10. Past Medical History Vital Signs: Last Vital Signs Temp 98.6 F 01/14/18 08:49 Pulse 97 H 01/14/18 08:49 Resp 17 01/14/18 08:49 BP 126/81 01/14/18 08:49 Pulse Ox 99 01/14/18 08:49 - Medical History PMH: Asthma (mild), Back Problems, Hypothyroidism, Chronic Kidney Disease (protein in urine) - Surgical History Surgical History: - Family History Family History: States: Unknown Family Hx - Home Medications Home Medications: Ambulatory Orders Medication Instructions Recorded Acetaminophen/Butalbital/Caf 1 tab PO TID #9 tab 04/28/16 [Fioricet] Metoclopramide [Reglan] 10 mg PO Q8 #9 tab 04/28/16 Naproxen [Naprosyn] 500 mg PO Q12H #20 tab 10/14/16 Sulfamethoxazole/Trimethoprim 1 tab PO BID #20 tab 10/14/16 [Bactrim DS 800 mg-160 mg] Docusate Sodium [Colace] 100 mg PO BID #14 capsule 04/03/17 Docusate Sodium [Colace] 100 mg PO BID PRN #14 capsule 04/03/17 Naproxen 375 mg PO Q8 PRN #21 tablet 04/03/17 Naproxen 375 mg PO Q8 PRN #21 tablet 04/03/17 Fluticasone Propionate [Flonase] 2 spr NS DAILY PRN #1 bottle 07/14/17 Dicyclomine [Dicyclomine HCl] 10 mg PO Q8 #10 cap 01/14/18 - Allergies Allergies/Adverse Reactions: Allergies Allergy/AdvReac Type Severity Reaction Status Date / Time oxycodone HCl [From Percocet] Allergy RASH Verified 01/14/18 09:04 Review of Systems ROS Statement: Except As Marked, All Systems Reviewed And Found Negative Gastrointestinal: Positive for: Nausea, Abdominal Pain Physical Exam - Reviewed Nursing Documentation Reviewed: Yes Vital Signs Reviewed: Yes - Physical Exam Appears: Positive for: Well, Non-toxic, No Acute Distress Head Exam: Positive for: ATRAUMATIC, NORMAL INSPECTION, NORMOCEPHALIC Skin: Positive for: Normal Color, Warm, DRY Eye Exam: Positive for: EOMI, Normal appearance, PERRL ENT: Positive for: Normal ENT Inspection Neck: Positive for: Normal, Painless ROM Cardiovascular/Chest: Positive for: Regular Rate, Rhythm Respiratory: Positive for: CNT, Normal Breath Sounds Gastrointestinal/Abdominal: Positive for: Soft, Tenderness (RLQ). Negative for: Guarding, Rebound Back: Positive for: Normal Inspection. Negative for: L CVA Tenderness, R CVA Tenderness Extremity: Positive for: Normal ROM Neurologic/Psych: Positive for: Alert, Oriented - Laboratory Results Result Diagrams: 01/14/18 09:54 01/14/18 09:54 - ECG O2 Sat by Pulse Oximetry: 99 - Progress Re-evaluation Time: 12:44 Condition: Improved (Had episode of chest discomfort after administartion of IV contrast but rash or SOB, At baseline now.) Disposition - Clinical Impression Clinical Impression: Abdominal pain in female, Abdominal pain - Patient ED Disposition Is Patient to be Admitted: No Counseled Patient/Family Regarding: Studies Performed, Diagnosis, Need For Followup, Rx Given - Disposition Referrals: [facility] [Outside] Disposition: Routine/Home Disposition Time: 12:44 Condition: FAIR Prescriptions: Dicyclomine [Dicyclomine HCl] 10 mg PO Q8 #10 cap Instructions: Nausea and Vomiting, Adult Forms: [employer] (Italian)
[2018-01-14 10:00] LABS: BASO % 0.6 % (0.0-2.0); EOS # 0.1 K/uL (0.0-0.7); EOS % 1.2 % (0.0-4.0); HEMOGLOBIN 12.4 g/dL (12.0-16.0); LYMPH # 1.5 K/uL (1.0-4.3); LYMPH % 30.6 % (20.0-40.0); MEAN CELL VOLUME 87.7 fl (81.0-99.0); MEAN PLATELET VOLUME 8.5 fl (7.2-11.7); MONO # 0.3 K/uL (0.0-0.8); MONO % 6.7 % (0.0-10.0); NEUT # 3.1 K/uL (1.8-7.0); NEUT % 60.9 % (50.0-75.0); NRBC % 0.1 % (0.0-0.0); RBC 4.27 Mil/uL (3.80-5.20); RED CELL DISTRIBUTION WIDTH 13.2 % (11.5-14.5)
[2018-01-14 10:12] LABS: ALB/GLOB RATIO 1.2 (1.0-2.1); ALBUMIN 4.1 g/dL (3.5-5.0); BLOOD UREA NITROGEN 11 mg/dl (7-17); CALCIUM 8.9 mg/dL (8.4-10.2); GFR NON-AFRICAN AMERICAN > 60
[2018-01-14] MEDS ORDERED: Iohexol 300 100 ML IJ ONE (10:22)
[2018-01-14] MEDS ORDERED: Sodium Chloride 0.9% 100 ML ONE (10:22)
[2018-01-14 10:25] LABS: ALT/SGPT 24 U/L (9-52); AST/SGOT 43 U/L (14-36)
--- NOTE | 2018-01-14 12:10 | CT ---
Date of service: 01/14/2018 PROCEDURE: CT Abdomen and Pelvis with contrast HISTORY: Abd pain COMPARISON: 04/03/2017 TECHNIQUE: Contrast dose: 95 mL Omnipaque 300 Radiation dose: Total exam DLP = 299.97 mGy-cm. This CT exam was performed using one or more of the following dose reduction techniques: Automated exposure control, adjustment of the mA and/or kV according to patient size, and/or use of iterative reconstruction technique. FINDINGS: LOWER THORAX: Unremarkable. LIVER: Unremarkable. No gross lesion or ductal dilatation. GALLBLADDER AND BILE DUCTS: Unremarkable. PANCREAS: Unremarkable. No gross lesion or ductal dilatation. SPLEEN: Unremarkable. ADRENALS: Unremarkable. No mass. KIDNEYS AND URETERS: Unremarkable. No hydronephrosis. No solid mass. VASCULATURE: Unremarkable. No aortic aneurysm. No aortic atherosclerotic calcification or mural plaque present. BOWEL: Moderate amount of stool is present. No obstruction. No gross mural thickening. APPENDIX: Normal appendix. PERITONEUM: Amount of free fluid in the cul-de-sac noted-believed physiologic in this 37-year-old female. No free air. LYMPH NODES: Unremarkable. No enlarged lymph nodes. BLADDER: Unremarkable. REPRODUCTIVE: A 2.0 cm anterior high left adnexal hypodensity inferred as a dominant left ovarian follicular cyst in this 37-year-old female is noted. The right adnexa is within normal limits. The uterus is slightly tipped towards the left side. BONES: No acute fracture. Levo scoliosis.-unchanged. OTHER FINDINGS: None. IMPRESSION: No bowel obstruction or free air. Moderate stool can be seen with constipation. Similar finding noted previously. Anterior high left adnexal/ovarian hypodensity-left ovarian follicular dominant cyst inferred. Trace free fluid cul-de-sac. Probably physiologic. Similar thoraco lumbar levoscoliosis.
== END 2018-01-14 13:00 | disposition home or self-care (01) ==
LOC: H.ER 08:47
DX: R10.31 Right lower quadrant pain (principal)
CPT/HCPCS: 74177; 80053; 81025; 85025; 99283; Q9967